=== PATIENT | female | born 1935 | race Caucasian/White ===

== ENCOUNTER → 2017-05-10 | Outpatient (CLI) | payer MEDICARE, OTHER ==
[~2017-05-10] MED LIST: ADV100/50 INH; ALB0.5 IH; ALBU8.5H IH; AMOX-559 PO; ASCO-182 PO; ASPI-757 PO; AUG500 PO; AZIT-1 PO; CA C1TAB85 PO; CALC-896 PO; CEPH-13 PO; CHOL100059 PO; CIPR-344 PO; CIPR-345 PO; DEN60I SUBQ; DIPH-1 PO; FLU IM; FLUT1DIS28 IH; HYDR-385 PO; HYDR-4309 PO; IBUP-56 PO; LEVO250T55 PO; MELA1TAB27 PO; METR-1 PO; NITR-105 PO; OMEG-36 PO; ONDA4TAB97 PO; PNEU0.5D3 IM; SIM10 PO; SIMV10TA98 PO; SOLI10TA8 PO; SOLI5TAB PO; SULF-198 PO
--- NOTE | 2017-05-10 12:22 | RADIOLOGY IMAGING REPORT ---
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 Comparison: DEXA scan from 08/19/2015. LUMBAR SPINE: The bone mineral density (BMD) measured from L1-L4 correlates with a Z-score of -0.8 and a T-score of -2.8 which is osteoporosis as defined by the World Health Organization. The corresponding risk of f racture in the lumbar spine is 68 times increased compared with a young adult reference population. This value has increase by 9.7 % since the prior study. More than 5% change is considered significan t. HIP: Bone mineral density (BMD) measured in the LEFT total hip region correlates with a Z-score zero and a T-score of -2.2 which is osteopenia as defined by the World Health Organization. The corresponding risk of fracture in the hip is 4-6 times increased compared to a young adult reference population. Th is value has decrease by 1.1 % since the prior study. More than 5% change is considered significant. T score left femoral neck -1.9 Bone mineral density (BMD) measured in the Femoral Neck region measures 0.771 g/cm?. IMPRESSION: 1. Lumbar spine: Osteoporosis. There has been 9.7% increase in the bone mineral density since the p revious exam. 2. Left Total Hip: Osteopenia. There has been 1.1% decrease in the bone mineral density since the p revious exam. 3. Femoral Neck: Bone Mineral Density is 0.771 g/cm? The next DEXA scan of this patient should include the following sites: L1-L4 and the left hip. FRAX? WHO Fracture Risk Assessment Tool link: <http://www.shef.ac.uk/FRAX/tool.jsp?locationValue=9> PLEASE NOTE: 1) The World Health Organization defines low BMD as follows: T-score Normal > -1 Osteopenia < -1 and > -2.5 Osteoporosis < -2.5 without fractures Established osteoporosis < -2.5 with fractures 2) In general, you may wish to consider: Diagnosis Treatment Follow-up DEXA Normal BMD Prevention 2-3 years Osteopenia Prevention/therapy 1-2 years Osteoporosis Therapy Yearly 3) Fracture risk estimated from the T-score is more accurate for vertebral fractures (often spontane ous) than for hip fractures. Report Dictated By: Fidelia Darby MD at 05/10/2017 12:15 PM Report E-Signed By: Fidelia Darby MD at 05/10/2017 12:17 PM WSN:[email or web address]
== END ==
LOC: RAD 01:08
PROVIDERS: ATTEND Nurse Practitioner Family
DX: Z13.820 Encounter for screening for osteoporosis (principal); M81.0 Age-related osteoporosis without current pathological fracture; M85.88 Other specified disorders of bone density and structure, other site
CPT/HCPCS: 77080

== ENCOUNTER → 2017-08-10 | Outpatient (CLI) | payer MEDICARE, OTHER ==
[~2017-08-10] MED LIST changes: +OXYGENHOME INH
--- NOTE | 2017-08-10 15:57 | RADIOLOGY IMAGING REPORT ---
FACILITY: [facility] - [place] PATIENT NAME: Nani Lainez : 1935 MR: [id number] V: [id number] EXAM DATE: ORDERING PHYSICIAN: TERRY PEREIRA TECHNOLOGIST: Location: [facility] Patient: Nani Lainez : 1935 Visit/Account:[id number] Date of Sevice: 08/10/2017 EXAMINATION: VENOUS DOPP LOW LEFT EXTREMITY COMPARISON: Ultrasound 10/27/2016 HISTORY: left lower extremity swelling FINDINGS: Standard left lower extremity Doppler ultrasound with color flow and spectral analysis is p erformed. The common femoral, femoral, and popliteal veins are widely patent and compress appropriately. The v isualized calf veins and the proximal greater saphenous vein are patent. No popliteal fluid collection. IMPRESSION: No left lower extremity deep venous thrombosis. Report Dictated By: Martínez Landaverde MD at 08/10/2017 3:50 PM Report E-Signed By: Martínez Landaverde MD at 08/10/2017 3:53 PM WSN:[id number]
== END ==
LOC: RAD 14:39
PROVIDERS: ATTEND Nurse Practitioner Family
DX: R60.9 Edema, unspecified (principal)

== ENCOUNTER → 2018-02-01 | Outpatient (CLI) | payer MEDICARE, OTHER ==
[~2018-02-01] MED LIST changes: +CEPH500C24 PO; +CEPH500T7 PO; -HYDR-4309 PO; +HYDR-653 PO; +MIRA25TA PO
== END ==
LOC: LAB 09:31
PROVIDERS: ATTEND Nurse Practitioner Family
DX: R30.0 Dysuria (principal)
CPT/HCPCS: 81001; 87088

== ENCOUNTER → 2018-03-16 | Outpatient (CLI) | payer MEDICARE, OTHER | LOC: LAB 16:05 | PROVIDERS: ATTEND Nurse Practitioner Family | DX: I49.9 Cardiac arrhythmia, unspecified (principal) | CPT/HCPCS: 36415; 82310; 82374; 82435; 82565; 82947; 84132; 84295; 84520 ==

== ENCOUNTER → 2018-03-21 | Outpatient (CLI) | payer MEDICARE, OTHER ==
[~2018-03-21] MED LIST changes: +APIX2.5T PO
--- NOTE | 2018-03-26 11:38 | RT HOLTER TEST ---
FACILITY: [facility] - [place] PATIENT NAME: HANS BERRY : [id number] MR: [id number] V: [id number] EXAM DATE: ORDERING PHYSICIAN: JUSTINO THORNTON TECHNOLOGIST: Jacobo-verenice date: 2018-03-21 15:49:00 Duration: 47:59:00 Test Indications: PALPIATIONS Medications: 202153 QRS complexes 472 Ventricular ectopics which represent <1 % of total QRS comp. 870 Supraventricular ectopics which represent <1 % of total QRS comp. * Paced QRS complexes which represent % of total QRS comp. VENTRICULAR ECTOPY 470 Isolated 0 Bigeminal Cycles 1 Couplets 0 Runs 0 Beats in Runs * Beats LONGEST at * BPM at :: -- * Beats FASTEST at * BPM at :: -- SUPRAVENTRICULAR ECTOPY 596 Isolated 95 Couplets 25 Runs 84 Beats in Runs 5 Beats LONGEST at 127 BPM at 11:39:11 2018-03-23 3 Beats FASTEST at 170 BPM at 13:14:39 2018-03-22 HEART RATES 47 MIN at 10:19:46 2018-03-23 72 AVG 146 MAX at 09:13:26 2018-03-22 LONGEST RR 1.904 secs at 10:19:44 2018-03-23 S-T LEVELS Channel 1 -12.800 mm MIN at 15:49:00 2018-03-21 -12.800 mm MAX at 15:49:00 2018-03-21 Channel 2 -12.800 mm MIN at 15:49:00 2018-03-21 -12.800 mm MAX at 15:49:00 2018-03-21 Channel 3 -12.800 mm MIN at 15:49:00 2018-03-21 -12.800 mm MAX at 15:49:00 2018-03-21 Intermittent Atrial fibrillation Premature ventricular complexes Premature supraventricular complexes Confirmed by CORINNE MEDLEY ([id number]) on 03/26/2018 11:37:02 AM Referred By: Overread By: CORINNE MEDLEY
== END ==
LOC: RESP 15:19
PROVIDERS: ATTEND Nurse Practitioner Family
DX: I49.3 Ventricular premature depolarization (principal)
CPT/HCPCS: 93225; 93226

== ENCOUNTER → 2018-03-27 | Outpatient (CLI) | payer MEDICARE, OTHER | LOC: LAB 14:03 | PROVIDERS: ATTEND Nurse Practitioner Family | DX: I48.91 Unspecified atrial fibrillation (principal) | CPT/HCPCS: 36415; 84443 ==

== ENCOUNTER → 2018-03-30 | Outpatient (CLI) | payer MEDICARE, OTHER | LOC: US 00:43 | PROVIDERS: ATTEND Nurse Practitioner Family | DX: I51.7 Cardiomegaly (principal) | CPT/HCPCS: 93306 ==

== ENCOUNTER → 2018-05-09 | Outpatient (CLI) | payer MEDICARE, OTHER | LOC: LAB 08:30 | PROVIDERS: ATTEND Nurse Practitioner Family | DX: R82.90 Unspecified abnormal findings in urine (principal); B96.89 Other specified bacterial agents as the cause of diseases classified elsewhere | CPT/HCPCS: 81001; 87077; 87088; 87186 ==

== ENCOUNTER → 2018-05-21 | Outpatient (CLI) | payer MEDICARE, OTHER ==
[~2018-05-21] MED LIST changes: +REGADENOSON 0.4 MG/5 ML SYR ONE
--- NOTE | 2018-05-21 18:34 | RADIOLOGY IMAGING REPORT ---
FACILITY: [facility] - [place] PATIENT NAME: Nani Lainez : 1935 MR: [id number] V: [id number] EXAM DATE: ORDERING PHYSICIAN: SHAYLA AQUINO TECHNOLOGIST: Location: [facility] Patient: Nani Lainez : 1935 Visit/Account:[id number] Date of Sevice: 05/21/2018 EXAMINATION: Single isotope SPECT imaging with regadenoson infusion and gated SPECT imaging. DATE OF EXAMINATION: May 21, 2018. DATE OF INTERPRETATION: May 21, 2018. REQUESTING PHYSICIAN: SHAYLA AQUINO. INDICATION: The patient is a 83-year-old female evaluated for chest pain. PROCEDURE: After informed consent the patient received an intravenous injection of 4.1 mCi of Tc-99m sestamibi followed at an appropriate time interval by rest imaging. The patient then subsequently r eceived an intravenous infusion of 0.4 mg of regadenoson per protocol without complication. Resting heart rate was 67 bpm with a peak heart rate of 83 bpm. Blood pressure at rest was 142 / 72 and foll owing infusion was 142 / 72. Baseline EKG demonstrates sinus rhythm. There were no diagnostic EKG c hanges of ischemia following infusion. Symptoms were nonspecific. The patient then received an intr avenous injection of 28.5 mCi of Tc-99m sestamibi followed by stress imaging. RAW DATA: Examination of the summed raw data revealed a poor quality study. MYOCARDIAL PERFUSION: The tomographic images demonstrate a subtle anterior defect at rest that is no longer present during stress and with prone imaging. This is likely an artifact. Although the latera l wall seems normal, there is a significant region of increased uptake near the lateral wall. This is likely some sort of GI structure although it would be abnormally high near the heart. Clinical corre lation with possible further imaging if indicated.. GATED IMAGES: The gated images demonstrate an ejection fraction of 70% with normal wall motion. IMPRESSION: 1. Baseline normal sinus rhythm without significant changes during stress. The perfusion appears nor mal with a defect at rest that improves with stress which is likely artifact. There is significant in ferolateral uptake of the tracer possibly related to a GI structure. Clinical correlation is recommen ded as outlined above. 2. Normal myocardial perfusion scan. 3. Normal LV systolic function; LVEF 70%. 4. Based on the results of this exam, the patient appears to be at low risk for future cardiovascular events. Report Dictated By: Troy Garza MD at 05/21/2018 6:27 PM Report E-Signed By: Troy Garza MD at 05/21/2018 6:30 PM WSN:[id number]
--- NOTE | 2018-05-21 19:24 | RT STRESS TEST REPORT ---
FACILITY: [facility] - [place] PATIENT NAME: HANS BERRY : [id number] MR: [id number] V: [id number] EXAM DATE: ORDERING PHYSICIAN: SHAYLA AQUINO TECHNOLOGIST: Danyelle Acquisition Time: 2018-05-21 14:51:10 Total Exercise Time: 00:01:00 Test Indications: Chest Discomfort Medications: SEE NUCLEAR MED SHEET Protocol: LEXISCAN Max HR: 083 BPM 61% of Pred: 136 BPM Max BP: 142/072 mmHG Max Work Load: 1.0 METS Confirmed by CORINNE MEDLEY ([id number]) on 05/21/2018 7:24:37 PM Referred By: Overread By: CORINNE MEDLEY
== END ==
LOC: NUC 01:32
PROVIDERS: ATTEND Internal Medicine Cardiovascular Disease
DX: R07.2 Precordial pain (principal)
CPT/HCPCS: 93017; J2785; 78452; A9500

== ENCOUNTER → 2018-06-01 | Outpatient (CLI) | payer MEDICARE, OTHER ==
[~2018-06-01] MED LIST changes: -REGADENOSON 0.4 MG/5 ML SYR ONE
== END ==
LOC: LAB 08:33
PROVIDERS: ATTEND Internal Medicine Cardiovascular Disease
DX: I48.0 Paroxysmal atrial fibrillation (principal); E78.00 Pure hypercholesterolemia, unspecified
CPT/HCPCS: 36415; 82465; 83718; 84443; 84478

== ENCOUNTER → 2018-07-11 | Outpatient (CLI) | payer MEDICARE, OTHER ==
[~2018-07-11] MED LIST changes: +TRIA15CR40 TP
== END ==
LOC: RAD 16:37
PROVIDERS: ATTEND Nurse Practitioner Primary Care
DX: Z20.9 Contact with and (suspected) exposure to unspecified communicable disease (principal)

== ENCOUNTER → 2018-07-17 | Outpatient (CLI) | payer MEDICARE, OTHER ==
[2018-07-17 09:55] LABS: PLATELET COUNT, AUTOMATED 259 K/uL (150-450)
--- NOTE | 2018-07-17 12:30 | RADIOLOGY IMAGING REPORT ---
FACILITY: [facility] - [place] PATIENT NAME: Nani Lainez : 1935 MR: [id number] V: [id number] EXAM DATE: ORDERING PHYSICIAN: JUSTINO THORNTON TECHNOLOGIST: Location: [facility] - [place] Patient: Nani Lainez : 1935 Visit/Account:[id number] Date of Sevice: 07/17/2018 Exam type: US VENOUS LOWER EXT LT History: Left lower leg swelling and erythema Comparison: August 10, 2017. Findings: The left lower extremity veins were imaged including the left common femoral vein, greater saphenous vein, superficial femoral vein, popliteal vein, posterior tibial vein, peroneal vein and anterior tib ial veins revealing no evidence of intraluminal thrombi. The veins were compressible and demonstrate d augmentation. Incidentally noted is a vascular stent in the left common femoral artery and superfi cial femoral artery. Also incidentally noted is a fatty replaced 2 cm lymph node in the left groin IMPRESSION: 1. No sonographic evidence DVT involving the left lower extremity veins Report Dictated By: Fidelia Darby MD at 07/17/2018 12:23 PM Report E-Signed By: Fidelia Darby MD at 07/17/2018 12:25 PM WSN:[email or web address]
== END ==
LOC: LAB 09:40
PROVIDERS: ATTEND Nurse Practitioner Family
DX: L53.9 Erythematous condition, unspecified (principal)
CPT/HCPCS: 36415; 85025; 86140

== ENCOUNTER → 2018-08-10 | Outpatient (CLI) | payer MEDICARE, OTHER ==
[~2018-08-10] MED LIST changes: +CLIN300C99 PO
[2018-08-10 11:30] LABS: PLATELET COUNT, AUTOMATED 256 K/uL (150-450)
== END ==
LOC: LAB 11:12
PROVIDERS: ATTEND Nurse Practitioner Family
DX: M79.89 Other specified soft tissue disorders (principal); M79.604 Pain in right leg
CPT/HCPCS: 36415; 85025; 85651; 86038; 86039; 86140; 86225; 86235; 86430

== ENCOUNTER → 2018-08-13 | Outpatient (CLI) | payer MEDICARE, OTHER | LOC: LAB 16:25 | PROVIDERS: ATTEND Nurse Practitioner Family | DX: M25.50 Pain in unspecified joint (principal); R76.8 Other specified abnormal immunological findings in serum | CPT/HCPCS: 36415; 86147; 86200; 86225 ==